=== PATIENT | male | born 1940 | race Caucasian/White ===

== ENCOUNTER 2022-12-09 05:37 | Day surgery (SDC) | payer MEDICARE ==
[2022-12-06 10:56] VITALS: BMI 27.8
[2022-12-09] MEDS ORDERED: PROPOFOL 200 MG/20 ML VIAL ONE (08:46)
== END 2022-12-09 09:35 | disposition home or self-care (01) ==
LOC: SDC 05:37
PROVIDERS: ATTEND Internal Medicine Cardiovascular Disease
DX: I48.91 Unspecified atrial fibrillation (principal); I48.4 Atypical atrial flutter; I13.0 Hypertensive heart and chronic kidney disease with heart failure and stage 1 through stage 4 chronic kidney disease, or unspecified chronic kidney disease; I50.30 Unspecified diastolic (congestive) heart failure; N18.30 Chronic kidney disease, stage 3 unspecified; I35.8 Other nonrheumatic aortic valve disorders; N40.0 Benign prostatic hyperplasia without lower urinary tract symptoms; Z79.01 Long term (current) use of anticoagulants; Z96.651 Presence of right artificial knee joint; Z79.899 Other long term (current) drug therapy
CPT/HCPCS: 92960; 93005; 93010; J2704

== ENCOUNTER 2024-07-05 05:38 | Day surgery (SDC) | payer MEDICARE ==
[2024-07-02 12:34] VITALS: BMI 27.2
[2024-07-05] MEDS ORDERED: Protamine Sulfate 50 MG/5 ML VIAL ONE (06:36)
[2024-07-05] MEDS ORDERED: Heparin 10,000 UNITS/ 10 ML VIAL ONE (06:36)
[2024-07-05] MEDS ORDERED: Heparin 25,000 units/D5W 500 ML ONE (06:36)
[2024-07-05] MEDS ORDERED: PROPOFOL 20 ML ONE (08:17)
[2024-07-05] MEDS ORDERED: ePHEDrine Sulfate 50 MG/10 ML VIAL ONE (08:42)
[2024-07-05] MEDS ORDERED: PHENYLEPHRINE-NS 100 MCG/ML 10 ML SYRINGE ONE (08:42)
[2024-07-05] MEDS ORDERED: Lidocaine 1% PF 5 ML VIAL ONE (08:42)
[2024-07-05] MEDS ORDERED: DOPamine 400 MG/D5W 250 ML 250 ML ONE (09:28)
[2024-07-05] MEDS ORDERED: fentaNYL PF 100 MCG/2 ML SYRINGE ONE ×2 (10:19→11:03)
== END 2024-07-05 13:31 | disposition home or self-care (01) ==
LOC: SDC 05:38
PROVIDERS: ATTEND Internal Medicine Cardiovascular Disease
PROC: 02583ZZ Destruction of Conduction Mechanism, Percutaneous Approach (ICD-10-PCS; principal; 2024-07-05)
DX: I48.19 Other persistent atrial fibrillation (principal); I13.0 Hypertensive heart and chronic kidney disease with heart failure and stage 1 through stage 4 chronic kidney disease, or unspecified chronic kidney disease; I50.30 Unspecified diastolic (congestive) heart failure; N18.9 Chronic kidney disease, unspecified; N40.0 Benign prostatic hyperplasia without lower urinary tract symptoms; M19.90 Unspecified osteoarthritis, unspecified site; Z95.0 Presence of cardiac pacemaker; Z79.01 Long term (current) use of anticoagulants; Z79.899 Other long term (current) drug therapy
CPT/HCPCS: 93623; 93650; 93662; C1732; C1759; C1760; C1894; J1265; J1644 ×2; J2704; 93005; 93613; 93620; J2720